=== PATIENT | male | born 1965 | race Caucasian/White ===

== ENCOUNTER 2017-05-07 15:42 | Emergency (ER) | payer MEDICARE, OTHER ==
[2017-05-07 15:49] VITALS: RESP 18; O2SAT 98
[2017-05-07 15:51] VITALS: TEMP 98.2
[2017-05-07] MEDS ORDERED: Tdap Vaccine 0.5 ml Vial (10-64 yrs) IM ONE ×2 (16:42→16:46)
--- NOTE | 2017-05-07 16:53 | ED PDOC ---
HPI: Seizure Time Seen by Provider: 05/07/17 15:56 Chief Complaint (Nursing): Seizure Additional Complaint(s): 51yo M with PMHx seizure with baseline RUE paralysis/contracture c/o seizure. seizure occurred today, a/w aura, denies post ictal state, witnessed by mother and cousin. Denies weakness, H/A, vision change. Subsequent fall and hit head on chair. Denies n/v, LOC. Seizure meds: lamictal 200mg and 150mg daily, clonazepam 0.5mg daily, vimpat 200mg Neurology: Dr. Pepe Erwin, FU visit 05/08/17 PCP: Dr. Ramires Past Medical History Reviewed: Historical Data, Nursing Documentation, Vital Signs Vital Signs: Last Vital Signs Temp 98.2 F 05/07/17 15:50 Pulse 84 05/07/17 15:46 Resp 18 05/07/17 15:46 BP 134/87 05/07/17 15:46 Pulse Ox 98 05/07/17 15:46 - Medical History PMH: Seizures - Family History Family History: States: No Known Family Hx - Allergies Allergies/Adverse Reactions: Allergies Allergy/AdvReac Type Severity Reaction Status Date / Time No Known Allergies Allergy Verified 05/07/17 15:45 Review of Systems ROS Statement: Except As Marked, All Systems Reviewed And Found Negative Neurological: Positive for: Seizures Physical Exam - Reviewed Nursing Documentation Reviewed: Yes Vital Signs Reviewed: Yes - Physical Exam Appears: Positive for: Well, Non-toxic Head Exam: Negative for: ATRAUMATIC (lac right scalp x2, 1.5cm and 2cm) Skin: Positive for: Warm, Dry Eye Exam: Positive for: EOMI. Negative for: Conjunctival injection ENT: Negative for: Pharyngeal Erythema Neck: Positive for: Normal, Painless ROM, Supple Cardiovascular/Chest: Positive for: Regular Rate, Rhythm, Chest Non Tender Respiratory: Positive for: Normal Breath Sounds. Negative for: Decreased Breath Sounds Gastrointestinal/Abdominal: Positive for: Soft. Negative for: Tenderness Back: Positive for: Normal Inspection. 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, Motor/Sensory Deficits (RUE weakness 2/5 baseline, RLE weakness 3/5 baseline), Gait (antalgic) Procedures - Laceration/Wound Repair Right Head Wound Length (cm): 2 (x2) Wound's Depth, Shape: superficial, linear Wound Explored: no foreign body removed Irrigated w/ Saline (ccs): 250 (each) Betadine Prep?: No Wound Repaired With: Colette (3 colette to right parietal lac 1.5cm, 4 colette to occipital lac 2cm) Wound Complexity: Simple - ECG O2 Sat by Pulse Oximetry: 98 Medical Decision Making Medical Decision Makin DDx seizure, laceration, head trauma no CT head indicated, asymptomatic scalp lac x2 repaired with colette TDaP vaccine d/c home remove colette in 5 days in ED or PCP Disposition - Clinical Impression Clinical Impression: Witnessed seizure - Disposition Referrals: Your, Neurologist [Other] Disposition Time: 17:02 Condition: STABLE Additional Instructions: Take your medications as instructed. Follow up with your neurologist tomorrow. Instructions: Seizures, Adult (DC) Print Language: FRISIAN
[2017-05-07 16:57] VITALS: BP 114/68; PULSE 68
== END 2017-05-07 17:00 | disposition home or self-care (01) ==
LOC: H.ER 15:42
DX: R56.9 Unspecified convulsions (principal); S01.01XA Laceration without foreign body of scalp, initial encounter; W19.XXXA Unspecified fall, initial encounter; Y92.89 Other specified places as the place of occurrence of the external cause

== ENCOUNTER 2017-05-13 10:32 | Emergency (ER) | payer OTHER ==
[2017-05-13 10:37] VITALS: BP 117/76; PULSE 89; TEMP 97; O2SAT 95
[2017-05-13 10:38] VITALS: BMI 28.1
--- NOTE | 2017-05-13 11:07 | ED PDOC ---
HPI: Wound Care - HPI Time Seen by Provider: 05/13/17 10:43 Chief Complaint (Nursing): Suture/Staple Removal Chief Complaint (Provider): Staple removal - scalp History Per: Patient Exam Limitations: no limitations Current Symptoms Are (Timing): Still Present Additional Complaint(s): 51 yo male returns to ER for staple removal. 7 Oclette placed on 05/07/17 (4/3) on the right. Pt denies pain or drainage. States he was not given Rx for antibiotics. No complaints today. Pt under Alfie Cevallos on previous visit. Past Medical History Reviewed: Historical Data, Nursing Documentation, Vital Signs Vital Signs: Last Vital Signs Temp 97 F L 05/13/17 10:36 Pulse 89 05/13/17 10:36 Resp BP 117/76 05/13/17 10:36 Pulse Ox 95 05/13/17 10:36 - Medical History PMH: Anxiety, Bipolar Disorder, Depression, Seizures Denies: Paranoia, Post Traumatic Stress Disorder, Chronic Kidney Disease, Schizophrenia - Surgical History Surgical History: No Surg Hx - Family History Family History: States: Unknown Family Hx - Living Arrangements Living Arrangements: With Family - Social History Current smoker - smoking cessation education provided: No - Immunization History Hx Tetanus Toxoid Vaccination: No Hx Influenza Vaccination: No Hx Pneumococcal Vaccination: No - Home Medications Home Medications: Ambulatory Orders Medication Instructions Recorded Ascorbic Acid [Vitamin C 500 mg 1 tab PO DAILY 03/25/17 Tab] Folic Acid [Folic Acid] 1 mg PO DAILY 03/25/17 Lacosamide [Vimpat] 200 mg PO Q12H 03/25/17 Lamotrigine [Lamictal] 150 mg PO Q12H 03/25/17 Lamotrigine [Lamictal] 200 mg PO Q12H 03/25/17 Latanoprost [Xalatan] 1 drop EACHEYE HS 03/25/17 Multivitamin [Multi-Vitamin Daily] 1 tab PO DAILY 03/25/17 clonazePAM [Klonopin] 0.5 mg PO TID 03/25/17 - Allergies Allergies/Adverse Reactions: Allergies Allergy/AdvReac Type Severity Reaction Status Date / Time fosphenytoin [From Cerebyx] Allergy DIZZINESS Verified 02/22/17 10:08 Review of Systems ROS Statement: Except As Marked, All Systems Reviewed And Found Negative Constitutional: Negative for: Fever, Chills Skin: Positive for: Other Physical Exam - Reviewed Nursing Documentation Reviewed: Yes Vital Signs Reviewed: Yes - Physical Exam Appears: Positive for: Well, Non-toxic, No Acute Distress Head Exam: Positive for: ATRAUMATIC, NORMAL INSPECTION, NORMOCEPHALIC Skin: Positive for: Warm. Negative for: Normal Color (2 well healing lacerations on the right scalp and right posterior scalp without surrouding erythema or drainage. ) Eye Exam: Positive for: Normal appearance ENT: Positive for: Normal ENT Inspection Neck: Positive for: Normal, Painless ROM Respiratory: Negative for: Accessory Muscle Use, Respiratory Distress Back: Positive for: Normal Inspection Extremity: Positive for: Normal ROM Neurologic/Psych: Positive for: Alert, Gait (Limp, chornic ) - ECG O2 Sat by Pulse Oximetry: 95 Medical Decision Making Medical Decision Makin colette removed without any difficulties or complications with staple remover at bedside. Disposition - Clinical Impression Clinical Impression: Removal of colette - Patient ED Disposition Is Patient to be Admitted: No Counseled Patient/Family Regarding: Diagnosis, Need For Followup - Disposition Disposition: Routine/Home Disposition Time: 11:07 Condition: GOOD Instructions: Staple Removal Print Language: URUGUAYAN
== END 2017-05-13 11:20 | disposition home or self-care (01) ==
LOC: MERGE 10:32 → H.ER 10:32
DX: Z48.02 Encounter for removal of sutures (principal); Z86.59 Personal history of other mental and behavioral disorders

== ENCOUNTER 2018-02-13 10:43 | Emergency (ER) | payer OTHER ==
[2018-02-13 10:56] VITALS: BMI 25.8
[2018-02-13 11:33] LABS: BASO % 0.6 % (0.0-2.0); EOS # 0.2 K/uL (0.0-0.7); EOS % 2.5 % (0.0-4.0); HEMOGLOBIN 14.3 g/dL (12.0-18.0); LYMPH # 1.6 K/uL (1.0-4.3); LYMPH % 20.1 % (20.0-40.0); MEAN CELL VOLUME 95.2 fl (80.0-94.0); MEAN CORPUSCULAR HEMOGLOBIN 31.2 pg (27.0-31.0); MEAN CORPUSCULAR HGB CONC 32.8 g/dL (33.0-37.0); MEAN PLATELET VOLUME 8.3 fl (7.2-11.7); MONO # 0.9 K/uL (0.0-0.8); MONO % 10.9 % (0.0-10.0); NEUT # 5.4 K/uL (1.8-7.0); NEUT % 65.9 % (50.0-75.0); NRBC % 0.1 % (0.0-0.0); RBC 4.58 Mil/uL (4.40-5.90); RED CELL DISTRIBUTION WIDTH 12.8 % (11.5-14.5); WHITE BLOOD COUNT 8.2 K/uL (4.8-10.8)
--- NOTE | 2018-02-13 11:37 | RAD ---
Date of service: 02/13/2018 PROCEDURE: Radiographs of the left elbow. HISTORY: L elbow pain olecranon swelling sp fall COMPARISON: No prior. FINDINGS: BONES: No acute fracture or destructive bony lesion identified. JOINTS: No dislocation or subluxation appreciated. SOFT TISSUES: Ossification insertion of the triceps tendon is seen at the olecranon process with overlying soft tissue edema seen at the posterior elbow more so inferiorly than superiorly. Additional even greater soft tissue edema edema is appreciated at the dorsal proximal forearm soft tissues as well. Note is made of intravenous catheter insertion at the antecubital fossa region. JOINT EFFUSION: None. OTHER FINDINGS: None IMPRESSION: No acute fracture or dislocation left elbow. Prominent posterior elbow and dorsal forearm soft tissue edema noted. Retained radiodense foreign body identified or emphysematous soft tissue change.
[2018-02-13 11:45] LABS: ALB/GLOB RATIO 1.4 (1.0-2.1); ALBUMIN 4.3 g/dL (3.5-5.0); ALT/SGPT 27 U/L (21-72); AST/SGOT 20 U/L (17-59); BLOOD UREA NITROGEN 16 mg/dl (9-20); CALCIUM 9.3 mg/dL (8.4-10.2); GFR NON-AFRICAN AMERICAN > 60
--- NOTE | 2018-02-13 12:32 | ED PDOC ---
Upper Extremity Pain/Injury Time Seen by Provider: 02/13/18 11:02 Chief Complaint (Nursing): Upper Extremity Problem/Injury Chief Complaint (Provider): left elbow pain swelling History Per: Wood Chopper (Zulay [id number]) History/Exam Limitations: no limitations Onset/Duration Of Symptoms: Days (3), Sudden Onset Current Symptoms Are (Timing): Still Present Quality: Sharp Additional Complaint(s): 52yo male hx seizure disorder states had seizure saturday striking elbow on ground, pain thereafter, now it appears swollen with pain w ROM. Denies fever, prior skin infections, headache or weakness. Takes seizure medications daily. Past Medical History Reviewed: Historical Data, Nursing Documentation, Vital Signs Vital Signs: Last Vital Signs Temp 98.2 F 02/13/18 10:47 Pulse 98 H 02/13/18 10:47 Resp 20 02/13/18 10:47 BP 138/92 H 02/13/18 10:47 Pulse Ox 96 02/13/18 10:47 - Medical History PMH: Seizures Denies: Anxiety, Bipolar Disorder, Depression, Paranoia, Post Traumatic Stress Disorder, Chronic Kidney Disease, Schizophrenia - Family History Family History: States: Unknown Family Hx - Social History Current smoker - smoking cessation education provided: No - Immunization History Hx Tetanus Toxoid Vaccination: No (not sure of last tetanus) Hx Influenza Vaccination: No Hx Pneumococcal Vaccination: No - Home Medications Home Medications: Ambulatory Orders Medication Instructions Recorded Folic Acid 1 mg PO DAILY 03/25/17 Lacosamide [Vimpat] 200 mg PO Q12H 03/25/17 Lamotrigine [Lamictal] 200 mg PO Q12H 03/25/17 Multivitamin [Multi-Vitamin Daily] 1 tab PO DAILY 03/25/17 clonazePAM [Klonopin] 0.5 mg PO Q8 03/25/17 Brivaracetam [Briviact] 100 mg PO Q12 02/13/18 Cephalexin [Keflex] 500 mg PO TID #21 capsule 02/13/18 Ergocalciferol (Vitamin D2) 50,000 unit PO QWK 02/13/18 [Vitamin D2] RX: Ibuprofen [Motrin Tab] 600 mg PO Q6 PRN #15 tab 02/13/18 - Allergies Allergies/Adverse Reactions: Allergies Allergy/AdvReac Type Severity Reaction Status Date / Time fosphenytoin [From Cerebyx] Allergy DIZZINESS Verified 02/22/17 10:08 Review of Systems Constitutional: Negative for: Fever Eyes: Negative for: Vision Change ENT: Negative for: Ear Pain Cardiovascular: Negative for: Chest Pain Respiratory: Negative for: Cough Gastrointestinal: Negative for: Abdominal Pain Genitourinary Male: Negative for: Dysuria Musculoskeletal: Positive for: Arm Pain. Negative for: Neck Pain, Back Pain Skin: Negative for: Rash, Lesions, Jaundice Neurological: Positive for: Seizures. Negative for: Weakness, Numbness, Headache Psych: Positive for: Anxiety. Negative for: Depression Physical Exam - Reviewed Nursing Documentation Reviewed: Yes Vital Signs Reviewed: Yes - Physical Exam Appears: Positive for: Well, Non-toxic, No Acute Distress Head Exam: Positive for: ATRAUMATIC, NORMAL INSPECTION, NORMOCEPHALIC Skin: Positive for: Normal Color, Warm, DRY Eye Exam: Positive for: EOMI, Normal appearance, PERRL ENT: Positive for: Normal ENT Inspection Neck: Positive for: Normal, Painless ROM Cardiovascular/Chest: Positive for: Regular Rate, Rhythm Respiratory: Positive for: CNT, Normal Breath Sounds Gastrointestinal/Abdominal: Positive for: Normal Exam, Soft Back: Positive for: Normal Inspection Extremity: Positive for: Tenderness, Swelling, Other (L olecranon small abrasion w edema erythema fluctuance and tenderness) Neurologic/Psych: Positive for: Alert, Oriented - Laboratory Results Result Diagrams: 02/13/18 11:20 02/13/18 11:20 - ECG O2 Sat by Pulse Oximetry: 96 Medical Decision Making Medical Decision Making: labs and xray obtained, results reviewed. WBC normal IV catheter placed by RN to antecub fossa, removed and placed to hand given possibilty of infection L elbow. R arm cannot be accessed given contracture/deformity. 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 Culture obtained of fluid Massaged and ample fluid drained, bacitracin applied and pressure dressing applied Dose vanco in ED given erythema to surrounding area, DC w keflex and return ER tomorrow for wound check Disposition - Clinical Impression Clinical Impression: Abscess of elbow - Patient ED Disposition Is Patient to be Admitted: No Counseled Patient/Family Regarding: Studies Performed, Diagnosis - Disposition Disposition: Routine/Home Disposition Time: 14:00 Condition: STABLE Additional Instructions: Return to ER tomorrow afternoon for repeat evaluation / wound check. Take medication as directed. Prescriptions: Cephalexin [Keflex] 500 mg PO TID #21 capsule RX: Ibuprofen [Motrin Tab] 600 mg PO Q6 PRN #15 tab PRN Reason: Pain, Moderate (4-7) Instructions: Abscess Incision and Drainage (DC) Forms: [employer] (Estonian)
[2018-02-13] MEDS ORDERED: Lidocaine 2% Inj (20ml) IJ STA (13:00)
[2018-02-13] MEDS ORDERED: VANCOMYCIN IVPB STA (13:03)
[2018-02-13] MEDS ORDERED: PED IVPB STA (13:03)
[2018-02-13] MEDS ORDERED: Lidocaine 2% Inj (20ml) ONE (13:07)
[2018-02-13] MEDS ORDERED: Vancomycin 1 g Inj ONE (14:08)
[2018-02-13 17:01] VITALS: BP 135/72; PULSE 78; RESP 16; TEMP 98.5
[2018-02-14 08:25] VITALS: O2SAT 96
== END 2018-02-13 16:37 | disposition home or self-care (01) ==
LOC: H.ER 10:43
DX: L02.414 Cutaneous abscess of left upper limb (principal)